=== PATIENT | female | born 1960 | race American Indian/Alaskan Native ===

== ENCOUNTER 2016-10-12 20:04 | Emergency (ER) | payer OTHER ==
[2016-10-12] MEDS ORDERED: CATAPRES PO ONE (21:10)
[2016-10-12 21:41] LABS: Basophils % (Auto) 0.2 % (0.0-1.8); Eosinophils % (Auto) 0.2 % (0.0-4.3); Hematocrit 44.6 % (30.3-42.9); Hemoglobin 14.7 gm/dl (10.1-14.3); Mean Corpuscular HGB Conc 33 % (30-34); Mean Corpuscular Hemoglobin 31 pg (28-32); Mean Corpuscular Volume 93 fl (79-97); Platelet Count 254 K/mm3 (140-440); Red Blood Count 4.83 M/mm3 (3.65-5.03); Red Cell Distribution Width 16.5 % (13.2-15.2); White Blood Count 14.2 K/mm3 (4.5-11.0)
[2016-10-12 21:52] LABS: Anion Gap 22 mmol/L; BUN/Creatinine Ratio 16.66; Blood Urea Nitrogen 10 mg/dL (7-17); Calcium 9.5 mg/dL (8.4-10.2); Carbon Dioxide 24 mmol/L (22-30); Glucose 92 mg/dL (65-100); Potassium 4.2 mmol/L (3.6-5.0); Sodium 141 mmol/L (137-145)
--- NOTE | 2016-10-12 22:56 | Emergency Department Report ---
ED Back Pain/Injury HPI - General Chief Complaint: Back Pain/Injury Stated Complaint: BACK PAIN Time Seen by Provider: 10/12/16 22:49 Source: patient Limitations: No Limitations - History of Present Illness Initial Comments: Pt is a 56 yr old female with a h/o HTn who presents with L sided back pain and suprapubic pain. Pt reports last week she had R sided lower back pain and for the last few days she has L sided back pain. Pain is described as a constant ache, does not radiate or migrate. Pt is also non compliant on her BP medication and in triage her BP was 236/142, patient was given clonidine 0.2mg PO. Otherwise no fevers, chills, KATE, dizziness, CP, SOB, NVD, extremity pain, syncope, dysuria, increased urinary frequency, hematuria, saddle anesthia, urinary or bowel incontinence, travel, trauma, or sick contacts - Related Data Previous Rx's Medication Instructions Recorded Last Taken Type Naproxen [Naprosyn] 500 mg PO BID PRN #14 tablet 10/13/16 Unknown Rx Allergies Allergy/AdvReac Type Severity Reaction Status Date / Time No Known Allergies Allergy Verified 10/12/16 20:58 ED Review of Systems ROS: Stated complaint: BACK PAIN Other details as noted in HPI Comment: All other systems reviewed and negative ED Past Medical Hx - Past Medical History Previous Medical History?: Yes Hx Hypertension: Yes Additional medical history: HIGH CHOLESTEROL - Surgical History Past Surgical History?: Yes Additional Surgical History: C SECTION - Social History Smoking Status: Current Every Day Smoker Substance Use Type: Alcohol - Medications Home Medications: Home Medications Medication Instructions Recorded Confirmed Last Taken Type Naproxen [Naprosyn] 500 mg PO BID PRN #14 tablet 10/13/16 Unknown Rx ED Physical Exam - General Limitations: No Limitations General appearance: alert, in no apparent distress - Head Head exam: Present: atraumatic, normocephalic - Eye Eye exam: Present: normal appearance - ENT ENT exam: Present: mucous membranes moist - Neck Neck exam: Present: normal inspection - Respiratory Respiratory exam: Present: normal lung sounds bilaterally. Absent: respiratory distress - Cardiovascular Cardiovascular Exam: Present: regular rate, normal rhythm. Absent: systolic murmur, diastolic murmur, rubs, gallop - GI/Abdominal GI/Abdominal exam: Present: soft, normal bowel sounds - Extremities Exam Extremities exam: Present: normal inspection - Back Exam Back exam: Present: normal inspection, full ROM, tenderness (L paraspinal to buttocks), CVA tenderness (L), paraspinal tenderness. Absent: CVA tenderness (R ) - Neurological Exam Neurological exam: Present: alert, oriented X3, CN II-XII intact. Absent: abnormal gait, motor sensory deficit - Psychiatric Psychiatric exam: Present: normal affect, normal mood - Skin Skin exam: Present: warm, dry, intact, normal color. Absent: rash ED Course Vital Signs 10/12/16 10/12/16 10/12/16 20:58 21:14 22:25 Temperature 99.1 F Pulse Rate 109 H 100 H 80 Respiratory 22 Rate Blood Pressure 236/142 218/137 Blood Pressure 102/63 [Right] O2 Sat by Pulse 98 Oximetry 10/12/16 10/12/16 10/12/16 22:30 22:59 23:00 Temperature 98.3 F Pulse Rate 75 78 Respiratory 20 19 Rate Blood Pressure 126/80 Blood Pressure 131/78 [Right] O2 Sat by Pulse 98 99 98 Oximetry 10/13/16 10/13/16 00:37 01:00 Temperature Pulse Rate 78 77 Respiratory 20 22 Rate Blood Pressure 144/93 176/93 Blood Pressure [Right] O2 Sat by Pulse 97 95 Oximetry ED Medical Decision Making - Lab Data Result diagrams: 10/12/16 21:19 10/12/16 21:19 - EKG Data -: EKG Interpreted by Me - EKG Data 10/12/16 22:50 EKG 2245, sinus rhythm at 74 bpm, QTC 492 ms, normal axis, LVH, diffuse T-wave inversions, no STEMI - Medical Decision Making Pt odered toradol 30mg IVP Pt ambulating to the bathroom unassisted Pt's HR improved to the 70-80 range, BP: 144/92 Critical care attestation.: If time is entered above; I have spent that time in minutes in the direct care of this critically ill patient, excluding procedure time. ED Disposition Clinical Impression: Back pain, Spinal stenosis at L4-L5 level Disposition: - TO HOME OR SELFCARE Is pt being admited?: No Condition: Stable Instructions: Back Pain (ED), Lumbar Spinal Stenosis (ED) Prescriptions: Naproxen [Naprosyn] 500 mg PO BID PRN #14 tablet PRN Reason: Pain Referrals: PRIMARY CARE, [Primary Care Provider] - 3-5 Days
[2016-10-12] MEDS ORDERED: NACL 0.9% 1000 ML 1,000 ML IV ONE (22:59)
[2016-10-13] MEDS ORDERED: TORADOL IV ONE (00:09)
[2016-10-13 00:57] LABS: Bacteria,Urine 1+ /HPF (Negative); Bilirubin,Urine NEG (Negative); Blood,Urine NEG (Negative); Ketones,Urine NEG (Negative); Leukocyte Esterase,Urine TR (Negative); Mucus,Urine FEW /HPF; Nitrite,Urine NEG (Negative); Urobilinogen,Urine < 2.0 mg/dL (<2.0)
[2016-10-13] MEDS ORDERED: NACL ONE (01:44)
--- NOTE | 2016-10-13 03:04 | Cat Scan Report ---
FINAL REPORT PROCEDURE: CT LUMBAR SPINE W CON TECHNIQUE: Computerized axial tomography of the lumbar spine was performed from T12 to the sacrum without contrast material. HISTORY: back pain fever COMPARISON: No prior studies are available for comparison. FINDINGS: There is no fracture. L1-2: No significant abnormality. L2-3: There is mild loss of disc height and facet arthropathy. There is no spinal or foraminal stenosis per. L3-4: There is moderate loss of disc height. There is bilateral facet hypertrophy. There is no spinal or foraminal stenosis.. L4-5: There is grade 1 anterior spondylolisthesis. There is bilateral facet hypertrophy. There is broad-based disc bulging causing severe spinal stenosis. There is severe bilateral foraminal stenosis worse on the left.. L5-S1: There is bilateral facet hypertrophy. There is no disc bulge or herniation or spinal stenosis. There is no significant foraminal stenosis. The sacrum and sacroiliac joints are intact. The paraspinal soft tissues are unremarkable.. IMPRESSION: There is spinal stenosis at L4-5 caused by grade 1 anterior spondylolisthesis. There is bilateral facet hypertrophy and foraminal stenosis. There are no fractures.
[2016-10-13 03:43] VITALS: BP 159/91
== END 2016-10-13 03:45 | disposition home or self-care (01) ==
LOC: ED 20:04
DX: M54.5 Low back pain (principal); M48.06 Spinal stenosis, lumbar region; I10 Essential (primary) hypertension; E78.00 Pure hypercholesterolemia, unspecified; F17.200 Nicotine dependence, unspecified, uncomplicated
CPT/HCPCS: 36415; 72132; 80048; 81001; 82962; 84484; 85025; 93005; 93010; 96361; 96374; 99284; J1885; J7030; Q9967